=== PATIENT | male | born 1975 | race Two or more races ===

== ENCOUNTER 2017-12-28 11:26 | Emergency (ER) | payer MEDICAID ==
[~2017-12-28] VITALS: Ht 152.4 cm; Wt 63.5 kg
--- NOTE | 2017-12-28 11:51 | NUR ---
42 Y/O MALE PLACED IN BED 1 C/O SOB WITH COUGHING AND SNEEZING.
[2017-12-28] MEDS ORDERED: ALBUTEROL FS 2.5 MG/0.5 ML VIAL.NEB NEB ONE (12:30)
[2017-12-28] MEDS ORDERED: ALBUTEROL FS 2.5 MG/0.5 ML VIAL.NEB ONE (12:37)
[2017-12-28 13:18] VITALS: BP 125/70
--- NOTE | 2017-12-28 13:22 | NUR ---
Verbalized he feels better.Patient discharged to home in stable condition. Written and verbal after care instructions given. Patient verbalizes understanding of instruction.
== END 2017-12-28 13:24 | disposition home or self-care (01) ==
LOC: ER 11:29
DX: J20.9 Acute bronchitis, unspecified (principal); R06.2 Wheezing
CPT/HCPCS: 71045-TC; A4606; Z7610

== ENCOUNTER 2019-03-11 20:05 | Emergency (ER) | payer MEDICAID ==
[~2019-03-11] VITALS: Ht 157.5 cm; Wt 66.7 kg
[2019-03-11 20:05] VITALS: BP 135/85
[2019-03-11] MEDS ORDERED: KETOROLAC TROMETHAMINE INJ 60 MG/2 ML VIAL IM ONE (20:30)
[2019-03-11] MEDS ORDERED: KETOROLAC TROMETHAMINE INJ 30 MG/ML VIAL ONE (20:43)
== END 2019-03-11 21:01 | disposition home or self-care (01) ==
LOC: ER 20:08
DX: S46.811A Strain of other muscles, fascia and tendons at shoulder and upper arm level, right arm, initial encounter (principal); R51 Headache; X58.XXXA Exposure to other specified factors, initial encounter; Y93.89 Activity, other specified; Y92.89 Other specified places as the place of occurrence of the external cause; Y99.8 Other external cause status
CPT/HCPCS: 96372; 99283; J1885

== ENCOUNTER 2022-08-04 09:29 | Emergency (ER) | payer MEDICAID ==
[~2022-08-04] VITALS: Ht 152.4 cm; Wt 63.5 kg
--- NOTE | 2022-08-04 10:00 | NUR ---
BIBS FOR SKIN RASH ON LEFT SIDE NECK AND CHEST X 3 D. NO PAIN OR DIFFICULTY BREATHING, NO SWELLING NOTED. A/O X 3, ABLE TO MAKE NEEDS KNOWN, TOLERATING WELL ON ROOM AIR.
[2022-08-04] MEDS ORDERED: IBUP-1953 PO (10:26)
[2022-08-04] MEDS ORDERED: ACYC-108 PO (10:26)
--- NOTE | 2022-08-04 10:39 | NUR ---
Patient discharged to home in stable condition. Written and verbal after care instructions given. Patient verbalizes understanding of instruction.
[2022-08-04 10:42] VITALS: BP 134/81
== END 2022-08-04 10:42 | disposition home or self-care (01) ==
LOC: ER 09:34
DX: B02.9 Zoster without complications (principal); Z79.899 Other long term (current) drug therapy

== ENCOUNTER 2023-02-12 14:40 | Emergency (ER) | payer MEDICAID ==
[2023-02-12] VITALS (7 sets, daily range): BP systolic 133; BP diastolic 91; TEMP 98.4; O2SAT 96–100
[~2023-02-12] VITALS: Ht 154.9 cm; Wt 68.0 kg
[~2023-02-12 14:40] MED LIST: ACYC-108 PO; IBUP-1953 PO
[2023-02-12] MEDS: predniSONE 20 MG TABLET PO ONE (16:30)
[2023-02-12] MEDS ORDERED: IPRATROPIUM NEB FS 0.5 MG/2.5 ML AMPUL.NEB ONE ×3 (17:17→20:42)
[2023-02-12] MEDS ORDERED: ALBUTEROL FS 2.5 MG/3 ML VIAL.NEB ONE (17:17)
[2023-02-12] MEDS: ALBUTEROL FS 2.5 MG/3 ML VIAL.NEB NEB ONE (17:22)
[2023-02-12] MEDS: IPRATROPIUM NEB FS 0.5 MG/2.5 ML AMPUL.NEB NEB ONE ×3 (17:22→20:41)
[2023-02-12] MEDS ORDERED: predniSONE 20 MG TABLET ONE (17:36)
[2023-02-12] MEDS: ALBUTEROL FS 2.5 MG/0.5 ML VIAL.NEB NEB ONE ×2 (19:25→20:41)
[2023-02-12] MEDS ORDERED: ALBUTEROL FS 2.5 MG/0.5 ML VIAL.NEB ONE ×2 (19:26→20:41)
[2023-02-12] MEDS ORDERED: IV NS 0.9% 250 ML IV ONE (20:21)
[2023-02-12] MEDS ORDERED: IOHEXOL-350 100 ML VIAL IV ONE (20:21)
[2023-02-12 20:23] LABS: BASOPHILS # (AUTO) 0.1 K/uL (0.0-0.2); BASOPHILS % (AUTO) 0.5 % (0.0-2.0); EOSINOPHILS # (AUTO) 0.3 K/uL (0.0-0.7); EOSINOPHILS % (AUTO) 2.5 % (0.0-6.0); HEMATOCRIT 44 % (39-51); HEMOGLOBIN 14.4 g/dL (13.5-17.5); LYMPHOCYTES # (AUTO) 1.2 K/uL (0.8-4.8); LYMPHOCYTES % (AUTO) 10.8 % (20.0-44.0); MEAN CORPUSCULAR HEMOGLOBIN 31 PG (26.0-33.0); MEAN CORPUSCULAR HGB CONC 33 g/dl (31.0-36.0); MEAN CORPUSCULAR VOLUME 93 fL (80-96); MONOCYTES # (AUTO) 0.4 K/uL (0.1-1.30); MONOCYTES % (AUTO) 3.2 % (2.0-12.0); NEUTROPHILS # (AUTO) 9.3 K/uL (1.8-8.9); PLATELET COUNT (AUTO) 230 K/uL (150-450); RED BLOOD CELL COUNT(AUTO) 4.71 MIL/uL (4.5-6.0); RED CELL DISTRIBUTION WIDTH 13.3 % (11.5-15.0); WHITE BLOOD COUNT (AUTO) 11.2 K/uL (4.3-11.0)
[2023-02-12 20:32] LABS: CALCIUM, SERUM 8.8 mg/dL (8.5-10.1); CREATININE 0.6 mg/dL (0.6-1.3); POTASSIUM 3.5 mmol/L (3.5-5.1)
[2023-02-12 20:37] LABS: ALBUMIN 4.1 g/dL (3.4-5.0); BILIRUBIN,TOTAL 0.4 mg/dL (0.2-1.0); TOTAL PROTEIN, SERUM 7.9 g/dL (6.4-8.2)
[2023-02-12] MEDS ORDERED: METH4TAB17 PO (22:44)
[2023-02-12] MEDS ORDERED: BENZ-13 PO (22:45)
[2023-02-12] MEDS ORDERED: ALBU18HF2 INH (22:45)
== END 2023-02-12 23:00 | disposition home or self-care (01) ==
LOC: ER 14:43
DX: J20.9 Acute bronchitis, unspecified (principal); Z20.822 Contact with and (suspected) exposure to COVID-19
CPT/HCPCS: 99285; 71275; 71045; 87426; 93005; 87804 ×2; 74177; 85025; 83690; 85378; 36415; 80053; 84484; 94640 ×3; J7512; J7050; Q9967; C9803

== ENCOUNTER 2023-04-30 08:34 | Emergency (ER) | payer MEDICAID, OTHER ==
[~2023-04-30] VITALS: Ht 157.5 cm; Wt 63.5 kg
[~2023-04-30 08:34] MED LIST changes: +ALBU18HF2 INH; +BENZ-13 PO; +METH4TAB17 PO
[2023-04-30] MEDS ORDERED: IOHEXOL-300 100 ML VIAL IV ONE (09:39)
[2023-04-30] MEDS ORDERED: IV NS 0.9% 250 ML IV ONE (09:39)
[2023-04-30 09:53] LABS: ALBUMIN 3.6 g/dL (3.4-5.0); BILIRUBIN,TOTAL 0.5 mg/dL (0.2-1.0); CALCIUM, SERUM 8.8 mg/dL (8.5-10.1); CREATININE 0.7 mg/dL (0.6-1.3); POTASSIUM 3.6 mmol/L (3.5-5.1); TOTAL PROTEIN, SERUM 7.5 g/dL (6.4-8.2)
[2023-04-30 09:55] LABS: BASOPHILS % (AUTO) 0.6 % (0.0-2.0); EOSINOPHILS # (AUTO) 0.4 K/uL (0.0-0.7); EOSINOPHILS % (AUTO) 4.7 % (0.0-6.0); HEMATOCRIT 43 % (39-51); HEMOGLOBIN 14.4 g/dL (13.5-17.5); LYMPHOCYTES # (AUTO) 2.9 K/uL (0.8-4.8); LYMPHOCYTES % (AUTO) 38.2 % (20.0-44.0); MEAN CORPUSCULAR HEMOGLOBIN 31 PG (26.0-33.0); MEAN CORPUSCULAR HGB CONC 33 g/dl (31.0-36.0); MEAN CORPUSCULAR VOLUME 92 fL (80-96); MONOCYTES # (AUTO) 0.6 K/uL (0.1-1.30); MONOCYTES % (AUTO) 7.8 % (2.0-12.0); NEUTROPHILS # (AUTO) 3.7 K/uL (1.8-8.9); NEUTROPHILS % (AUTO) 48.7 % (43.0-81.0); PLATELET COUNT (AUTO) 255 K/uL (150-450); RED BLOOD CELL COUNT(AUTO) 4.66 MIL/uL (4.5-6.0); RED CELL DISTRIBUTION WIDTH 13.4 % (11.5-15.0); WHITE BLOOD COUNT (AUTO) 7.6 K/uL (4.3-11.0)
[2023-04-30] MEDS ORDERED: HYDROCODONE/APAP 5/325MG TABLET ONE (10:52)
[2023-04-30] MEDS ORDERED: IBUPROFEN 600 MG TABLET ONE (10:52)
[2023-04-30] MEDS: HYDROCODONE/APAP 5/325MG TABLET PO ONE (10:52)
[2023-04-30] MEDS: IBUPROFEN 600 MG TABLET PO ONE (10:55)
[2023-04-30] MEDS ORDERED: NAPR-1164 PO (10:58)
[2023-04-30 11:06] VITALS: BP 133/72; TEMP 98.4; O2SAT 100
== END 2023-04-30 11:06 | disposition home or self-care (01) ==
LOC: ER 08:42
DX: S20.212A Contusion of left front wall of thorax, initial encounter (principal); S39.91XA Unspecified injury of abdomen, initial encounter; W01.0XXA Fall on same level from slipping, tripping and stumbling without subsequent striking against object, initial encounter; Y93.89 Activity, other specified; Y92.89 Other specified places as the place of occurrence of the external cause; Y99.8 Other external cause status
CPT/HCPCS: 99285; 74177; 71100; 73590; 85025; 83690; 36415; 80053; J7050; Q9967

== ENCOUNTER 2024-05-29 17:27 | Emergency (ER) | payer OTHER ==
[~2024-05-29] VITALS: Ht 154.9 cm; Wt 65.8 kg
[~2024-05-29 17:27] MED LIST changes: +NAPR-1164 PO
[2024-05-29 17:48] VITALS: BP 123/81; TEMP 98.1; O2SAT 97
[2024-05-29] MEDS ORDERED: CYCL5TAB PO (19:13)
[2024-05-29] MEDS ORDERED: IBUP-1953 PO (19:13)
== END 2024-05-29 19:36 | disposition home or self-care (01) ==
LOC: ER 17:32
DX: M54.2 Cervicalgia (principal); M54.50 Low back pain, unspecified; Z79.899 Other long term (current) drug therapy; V43.02XA Car driver injured in collision with other type car in nontraffic accident, initial encounter; Y93.89 Activity, other specified; Y92.415 Exit ramp or entrance ramp of street or highway as the place of occurrence of the external cause; Y99.8 Other external cause status
CPT/HCPCS: 72125-TC; 72131-TC